=== PATIENT | male | born 1975 | race Caucasian/White ===

== ENCOUNTER 2024-05-14 18:27 | Emergency (ER) | payer OTHER, SELFPAY ==
[2024-05-14 18:29] VITALS: BP 184/118
--- NOTE | 2024-05-14 22:55 | ED.GENMED ---
History of Present Illness
General
Chief Complaint: Ear Problem
Source: patient
Exam Limitations: none
Time Seen by Provider: 05/14/24 19:41
Nursing documentation reviewed up to this point in time: agreed with
History of Present Illness
History of Present Illness:
Patient to ED with complaint of bilateral ear pain. Symptoms started 4 days ago. He was seen at urgent care and given rx for ear drops and oral antibiotics. States he is not improving, Denies fever/chills.
Past History
Past History
ED Past Medical History: None
ED Past Surgical History: None
Review of Systems
Review of Systems
Allergies reviewed?: Yes
All Other Systems: ROS reviewed and negative except as documented in HPI and ROS
Constitutional: Reports no symptoms
EENT: Reports other (bilateral ear pain)
Musculoskeletal: Reports no symptoms
Skin: Reports no symptoms
Neurological: Reports no symptoms
Psychiatric: Reports no symptoms
Phy Exam
General Physical Exam
General Presentation: well appearing and mild distress
General age: appears stated age
General Skin: warm and dry
General Habitus: normal
General Mental: alert
ENT Exam
ENT Exam: pharynx normal, neck supple and other (Bilateral canals are painful and swollen. Unable to view canal and TM due to swelling. Ear wick applied bilaterally. WIll continue antibiotic drops.)
Musculoskeletal Exam
Musculoskeletal Exam: full ROM
Skin Exam
Skin Exam: normal color, warm/dry and no rash
Psychiatric Exam
Psychiatric Exam: normal mood/affect
Course
Orders/Labs/Results
Orders:
Orders
05/14/24 19:46
Neomycin/Polymyxin/Hc [Cortisporin Otic Suspension] 1 drop .ROUTE .STK-MED ONE
Vital Signs
Initial and Last Documented VS:
Initial Vital Signs
Temp Pulse Resp BP Pulse Ox
98.0 F 115 16 184/118 98
05/14/24 18:29 05/14/24 18:29 05/14/24 18:29 05/14/24 18:29 05/14/24 18:29
Last Documented Vital Signs
Temp Pulse Resp BP Pulse Ox
98.0 F 115 16 184/118 98
05/14/24 18:29 05/14/24 18:29 05/14/24 18:29 05/14/24 18:29 05/14/24 18:29
*Critical Care Note
Total Time (30-74mins, 75-104mins- exclusive of procedures): Not Applicable
ED Attending Note
-
Portions of this chart may have been created with voice recognition software.� Occasional wrong word or��sound alike� substitutions may have occurred due to the inherent limitations of voice recognition software.
Discharge Plan
Departure
Patient Disposition: Home (Routine Discharge)
Date of Disposition: 05/14/24
Time of Disposition: 19:55
Patient with high blood pressure during this ER visit?: No
Condition: Good
Covid-19: Not Applicable
Discharge Problem:
Acute Otitis Externa
Instructions: Outer Ear Infection (DC), How to Use Ear Drops
Referrals:
UNKNOWN - PT DOES,NOT KNOW [Family Provider] -
Activity Restrictions/Additional Instructions:
Return to the emergency department immediately for any changes in/worsening of your symptoms.
Interventions
Interventions:
*Risk Screen - Suicide Last Done: 05/14/24 20:03
*General Assessment Last Done: 05/14/24 18:29
*Neglect/Abuse Screening Last Done: 05/14/24 20:03
ED- Fall Risk Assessment Last Done: 05/14/24 20:03
*ED COVID-19 Vaccine History Last Done: 05/14/24 20:03
*Nursing Disposition Last Done: 05/14/24 20:03
Discharge Date and Time
Discharge Date/Time: 05/14/24 20:04
Print Language: [employer]
== END 2024-05-14 20:04 | disposition home or self-care (01) ==
LOC: EMR 18:27
PROVIDERS: EMERGENCY PHYSICIAN Emergency Medicine
DX: H60.509 Unspecified acute noninfective otitis externa, unspecified ear (principal)
CPT/HCPCS: 99282